=== PATIENT | male | born 1960 | race African-American/Black ===

== ENCOUNTER 2016-07-18 19:56 | Emergency (ER) | payer MEDICARE, MEDICAID ==
[2016-02-10 18:07] VITALS: BP 163/98
[~2016-07-18] VITALS: Ht 190.5 cm; Wt 122.5 kg
[~2016-07-18 19:56] MED LIST: AMIT25TA; AMLO5TAB4 PO; AMOX1TAB61 PO; CIPR500T94 PO; CLON0.3T PO; DOXA2TAB2 PO; HYDR-963 PO; INDO50CA PO; LISI40TA PO; OMEP20TA PO; TADA10TA PO; TIZA4CAP PO; TRAZ150T55 PO
[2016-07-18] MEDS ORDERED: HYDR-971 PO (21:10)
--- NOTE | 2016-07-18 21:10 | PHYS DOC ---
Past Medical History Past Medical History: GERD, Hypertension Past Surgical History: Other Additional Past Surgical Histo: back fusion and abdominal surgery Alcohol Use: None Drug Use: None Adult General Chief Complaint Chief Complaint: SHOULDER INJURY [facility] HPI Patient is a 55 year old female with complaint of atraumatic left shoulder pain for approximately one month. Patient states that he had rotator cuff surgery done greater than 20 years ago while in [place]. Patient states he saw his primary care doctor, Dr. Echeverria this past week and received a cortisone shot within the joint itself. Patient has not received any instructions on follow-up with an orthopedic doctor. He denies any additional concerns at this time. Review of Systems Review of Systems Constitutional: Denies fever or chills [] Eyes: Denies change in visual acuity, redness, or eye pain [] HENT: Denies nasal congestion or sore throat [] Respiratory: Denies cough or shortness of breath [] Cardiovascular: No additional information not addressed in HPI [] GI: Denies abdominal pain, nausea, vomiting, bloody stools or diarrhea [] : Denies dysuria or hematuria [] Musculoskeletal: Denies back pain or joint pain [] Integument: Denies rash or skin lesions [] Neurologic: Denies headache, focal weakness or sensory changes [] Endocrine: Denies polyuria or polydipsia [] Allergies Allergies Allergies Coded Allergies Type Severity Reaction Last Updated Verified Iodinated Contrast Media - Oral and Allergy Intermediate vomiting 02/10/16 Yes Physical Exam Physical Exam Constitutional: Well developed, well nourished, no acute distress, non-toxic appearance. [] HENT: Normocephalic, atraumatic, bilateral external ears normal, oropharynx moist, no oral exudates, nose normal. [] Eyes: PERRLA, EOMI, conjunctiva normal, no discharge. [] Neck: Normal range of motion, no tenderness, supple, no stridor. [] Cardiovascular:Heart rate regular rhythm, no murmur [] Lungs & Thorax: Bilateral breath sounds clear to auscultation [] Abdomen: Bowel sounds normal, soft, no tenderness, no masses, no pulsatile masses. [] Skin: Warm, dry, no erythema, no rash. [] Back: No tenderness, no CVA tenderness. [] Extremities: Left shoulder is normal in appearance. There is a surgical scar to the anterior lateral aspect of patient's shoulder. Patient complains of pain and tenderness to his left shoulder without any palpable defect or deformity. Patient demonstrates limited range of motion with raising and abduction. Left arm is normal in appearance and nontender palpation. There is no palpable defect or deformity. Neurovascularly intact with capillary refill less than 2 seconds. Neurologic: Alert and oriented X 3, normal motor function, normal sensory function, no focal deficits noted. [] Psychologic: Affect normal, judgement normal, mood normal. [] Current Patient Data Vital Signs Vital Signs Date Time Temp Pulse Resp B/P Pulse Ox O2 Delivery O2 Flow Rate FiO2 07/18/16 20:31 97.6 66 20 98 Room Air 97.6 EKG EKG [] Radiology/Procedures Radiology/Procedures [] Course & Med Decision Making Course & Med Decision Making Pertinent Labs and Imaging studies reviewed. (See chart for details) [] Dragon Disclaimer Dragon Disclaimer This electronic medical record was generated, in whole or in part, using a voice recognition dictation system. Departure Departure Impression: Primary Impression: Left shoulder pain Disposition: HOME, SELF-CARE Condition: GOOD Referrals: JAMEL WALLACE (PCP) CINTHIA DIAS MD Patient Instructions: Shoulder Pain, [id number] Additional Instructions: 1. Take the medication as prescribed. 2. Review the discharge instructions provided for self-care and reasons to return to the emergency department. 3. Perform the rowing motions and shoulder rotations as demonstrated. Be sure to do this 3 times a day. 4. Follow-up with an orthopedic doctor by: The numbers provided. Be sure to call tomorrow to schedule an appointment. Scripts Hydrocodone/Apap 5-325 (Christoval 5-325 Tablet)1 Each Tablet1 Tab PO PRN Q6HRS PRN PAIN #10 TAB Prov:DENA BOWERS 07/18/16 DENA BOWERS Jul 18, 2016 21:10
== END 2016-07-18 21:22 | disposition home or self-care (01) ==
LOC: ER 19:56
DX: M25.512 Pain in left shoulder (principal); K21.9 Gastro-esophageal reflux disease without esophagitis; I10 Essential (primary) hypertension; Z98.1 Arthrodesis status; Z98.890 Other specified postprocedural states; Z91.041 Radiographic dye allergy status
CPT/HCPCS: 99283

== ENCOUNTER 2016-08-23 06:27 | Emergency (ER) | payer MEDICARE, MEDICAID ==
[~2016-08-23] VITALS: Ht 160 cm; Wt 122.5 kg
[~2016-08-23 06:27] MED LIST changes: +HYDR-971 PO
[2016-08-23] MEDS ORDERED: IV NORMAL SALINE 1000ML BAG 1,000 ML IV ONE (06:45)
[2016-08-23 06:58] LABS: BASO % 0 % (0-3); EOS % 3 % (0-3); HEMATOCRIT 46.1 % (39.0-53.0); HEMOGLOBIN 15.5 g/dL (13.0-17.5); LYMPH % 13 % (24-48); MEAN CORPUSCULAR HEMOGLOBIN 32 pg (25-35); MEAN CORPUSCULAR HGB CONC 34 g/dL (31-37); MEAN CORPUSCULAR VOLUME 95 fL (79-100); MONO % 8 % (0-9); NEUT % 76 % (31-73); PLATELET COUNT 192 x10^3/uL (140-400); RED BLOOD COUNT 4.83 x10^6/uL (4.30-5.70); RED CELL DISTRIBUTION WIDTH 15.1 % (11.5-14.5); WHITE BLOOD COUNT 7.6 x10^3/uL (4.0-11.0)
[2016-08-23 07:07] LABS: CALCIUM 9.1 mg/dL (8.5-10.1); CREATININE 1.4 mg/dL (0.7-1.3); GFR 63.2; POTASSIUM 3.9 mmol/L (3.5-5.1)
[2016-08-23 07:14] LABS: ALBUMIN 3.5 g/dL (3.4-5.0); ALBUMIN/GLOBULIN RATIO 0.8 (1.0-1.7); TOTAL BILIRUBIN 0.4 mg/dL (0.2-1.0); TOTAL PROTEIN 7.9 g/dL (6.4-8.2)
--- NOTE | 2016-08-23 07:27 | PHYS DOC ---
Past Medical History Past Medical History: GERD, Hypertension Past Surgical History: Other Additional Past Surgical Histo: back fusion and abdominal surgery, left rotator cuff Alcohol Use: None Drug Use: None Adult General Chief Complaint Chief Complaint: diarrhea, cough HPI HPI Patient is a 55 year old L who presents with diarrhea that started today. Patient states he's had multiple loose stools. He's also had a cough for the last 3 days and now has pain in his upper abdomen whenever he coughs. 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 He denied any chest pain or shortness of breath. He does report some generalized weakness. He denies any history of PE or DVT, no history of ACS. No fevers, nausea or vomiting. Primary Care physician is Dr. Robinson Echeverria Review of Systems Review of Systems Constitutional: Denies fever or chills [] Eyes: Denies change in visual acuity, redness, or eye pain [] HENT: Denies nasal congestion or sore throat [] Respiratory: Per history of present illness Cardiovascular: Per history of present illness GI: Denies nausea, vomiting, reports diarrhea [] : Denies dysuria or hematuria [] Musculoskeletal: Denies back pain or joint pain [] Integument: Denies rash or skin lesions [] Neurologic: Denies headache, focal weakness or sensory changes [] Current Medications Current Medications Current Medications Medications (Trade) Dose Ordered Sig/Wilmer Start Time Stop Time Status Last Admin Dose Admin Ondansetron HCl (Zofran) 4 mg 1X ONCE 08/23/16 07:45 08/23/16 07:46 DC 08/23/16 07:36 4 MG Sodium Chloride (Iv Sodium Chloride 0.9% 1000ml Bag) 1,000 ml @ 1,000 mls/hr 1X ONCE 08/23/16 06:45 08/23/16 07:44 DC 08/23/16 07:13 1,000 MLS/HR Allergies Allergies Allergies Coded Allergies Type Severity Reaction Last Updated Verified Iodinated Contrast Media - Oral and Allergy Intermediate vomiting 02/10/16 Yes Physical Exam Physical Exam Constitutional: Well developed, well nourished, no acute distress, non-toxic appearance. [] HENT: Normocephalic, atraumatic, bilateral external ears normal, oropharynx moist, no oral exudates, nose normal. [] Eyes: PERRLA, EOMI, conjunctiva normal, no discharge. [] Neck: Normal range of motion, no tenderness, supple, no stridor. [] Cardiovascular:Heart rate regular with regular rhythm, no murmur [] Lungs & Thorax: Bilateral breath sounds clear to auscultation, no wheeze or crackles appreciated Abdomen: Bowel sounds normal, soft, tender to palpation diffusely in the lower chest wall/upper abdomen, no masses, no pulsatile masses. [] Skin: Warm, dry, no erythema, no rash. [] Back: No tenderness, no CVA tenderness. [] Extremities: No tenderness, no cyanosis, no clubbing, ROM intact, no edema. neg homen's bilaterally Neurologic: Alert and oriented X 3, normal motor function, normal sensory function, no focal deficits noted. [] Current Patient Data Vital Signs Vital Signs Date Time Temp Pulse Resp B/P Pulse Ox O2 Delivery O2 Flow Rate FiO2 08/23/16 08:00 86 31 134/75 96 Room Air 08/23/16 06:54 97.8 97.8 Lab Values Laboratory Tests Test 08/23/16 06:49 08/23/16 07:28 White Blood Count 7.6x10^3/uL (4.0-11.0) Red Blood Count 4.83x10^6/uL (4.30-5.70) Hemoglobin 15.5g/dL (13.0-17.5) Hematocrit 46.1% (39.0-53.0) Mean Corpuscular Volume 95fL (79-100) Mean Corpuscular Hemoglobin 32pg (25-35) Mean Corpuscular Hemoglobin Concent 34g/dL (31-37) Red Cell Distribution Width 15.1% (11.5-14.5) H Platelet Count 192x10^3/uL (140-400) Neutrophils (%) (Auto) 76% (31-73) H Lymphocytes (%) (Auto) 13% (24-48) L Monocytes (%) (Auto) 8% (0-9) Eosinophils (%) (Auto) 3% (0-3) Basophils (%) (Auto) 0% (0-3) Neutrophils # (Auto) 5.8x10^3uL (1.8-7.7) Lymphocytes # (Auto) 1.0x10^3/uL (1.0-4.8) Monocytes # (Auto) 0.6x10^3/uL (0.0-1.1) Eosinophils # (Auto) 0.2x10^3/uL (0.0-0.7) Basophils # (Auto) 0.0x10^3/uL (0.0-0.2) Sodium Level 140mmol/L (136-145) Potassium Level 3.9mmol/L (3.5-5.1) Chloride Level 106mmol/L (98-107) Carbon Dioxide Level 25mmol/L (21-32) Anion Gap 9 (6-14) Blood Urea Nitrogen 19mg/dL (8-26) Creatinine 1.4mg/dL (0.7-1.3) H Estimated GFR (Cockcroft-Gault) 63.2 BUN/Creatinine Ratio 14 (6-20) Glucose Level 110mg/dL (70-99) H Calcium Level 9.1mg/dL (8.5-10.1) Total Bilirubin 0.4mg/dL (0.2-1.0) Aspartate Amino Transferase (AST) 28U/L (15-37) Alanine Aminotransferase (ALT) 41U/L (16-63) Alkaline Phosphatase 58U/L (46-116) Total Protein 7.9g/dL (6.4-8.2) Albumin 3.5g/dL (3.4-5.0) Albumin/Globulin Ratio 0.8 (1.0-1.7) L Urine Collection Type Void Urine Color Yellow Urine Clarity Clear Urine pH 5.0 Urine Specific [place] 1.025 Urine Protein Negativemg/dL (NEG-TRACE) Urine Glucose (UA) Negativemg/dL (NEG) Urine Ketones (Stick) Negativemg/dL (NEG) Urine Blood Negative (NEG) Urine Nitrite Negative (NEG) Urine Bilirubin Negative (NEG) Urine Urobilinogen Dipstick 0.2mg/dL (0.2 mg/dL) Urine Leukocyte Esterase Negative (NEG) Urine RBC 0/HPF (0-2) Urine WBC 1-4/HPF (0-4) Urine Squamous Epithelial Cells Mod/LPF Urine Bacteria 0/HPF (0-FEW) Urine Mucus Marked/LPF Laboratory Tests 08/23/16 06:49 Laboratory Tests 08/23/16 06:49 EKG EKG 88 bpm, sinus, normal axis, normal intervals, no ST elevation or depression, nonischemic T waves [] Radiology/Procedures Radiology/Procedures CXR: Read by radiology as a normal study [] Course & Med Decision Making Course & Med Decision Making Pertinent Labs and Imaging studies reviewed. (See chart for details) Patient was given IV fluids, Zofran, IV Toradol. Lab work, chest x-ray, EKG performed. Acute findings on ED workup. Patient feeling much better. Discharged with Rx for Zofran and loperamide. Return precautions given. Dragon Disclaimer Dragon Disclaimer This electronic medical record was generated, in whole or in part, using a voice recognition dictation system. Departure Departure Impression: Primary Impression: Diarrhea Disposition: HOME, SELF-CARE Condition: IMPROVED Referrals: JAMEL WALLACE (PCP) Scripts Guaifenesin/Codeine Phosphate (Codeine-Guaifen 10-100 mg/5 ml)120 Ml [id number] Ml PO PRN Q4-6HRS PRN COUGH #200 LIQUID Prov:DARIAN CHAUDHARI MD 08/23/16 Loperamide Hcl (Loperamide)2 Mg Tablet2 Mg PO PRN PRN DIARRHEA #16 TAB take 2 tabs after first loose stool, then 1 tab each loose stool thereafter. Max 8 tabs per day. Prov:DARIAN CHAUDHARI MD 08/23/16 DARIAN CHAUDHARI MD August 23, 2016 07:27
--- NOTE | 2016-08-23 07:34 | RAD ---
Indication cough and chest pain for 2 days. PA and lateral views of the chest were obtained and are compared to a single view examination just over 3 years earlier. Heart size is at the upper limits of normal. There is no congestive heart failure. There is no focal infiltrate significant pleural fluid collection or pneumothorax. IMPRESSION: Stable mild cardiomegaly. No acute or focal process seen in the chest
[2016-08-23] MEDS ORDERED: ONDANSETRON PF 4 MG/2 ML VIAL. IV ONE (07:45)
[2016-08-23 07:51] LABS: BILIRUBIN,URINE NEGATIVE (NEG); GLUCOSE,URINE NEGATIVE (NEG); NITRITE,URINE NEGATIVE (NEG); PROTEIN,URINE NEGATIVE (NEG-TRACE); UROBILINOGEN,URINE 0.2 mg/dL (0.2 mg/dL)
[2016-08-23 08:00] VITALS: BP 134/75
[2016-08-23 08:06] LABS: BACTERIA,URINE 0 /HPF (0-FEW); RBC,URINE 0 /HPF (0-2); SQUAMOUS EPITHELIAL CELL,UR MOD /LPF
[2016-08-23] MEDS ORDERED: LOPE2TAB27 PO (08:23)
[2016-08-23] MEDS ORDERED: GUAI120L35 PO (08:23)
--- NOTE | 2016-08-23 09:56 | EKG ---
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
== END 2016-08-23 08:30 | disposition home or self-care (01) ==
LOC: ER 06:27
DX: R19.7 Diarrhea, unspecified (principal); R05 Cough; R10.9 Unspecified abdominal pain; R42 Dizziness and giddiness; R53.1 Weakness; I10 Essential (primary) hypertension; K21.9 Gastro-esophageal reflux disease without esophagitis; Z98.1 Arthrodesis status; Z91.041 Radiographic dye allergy status
CPT/HCPCS: 36415; 71020; 80053; 81001; 85027; 93005; 96361; 96374; 99285; J2405; J7030

== ENCOUNTER 2017-02-10 19:48 | Emergency (ER) | payer OTHER, MEDICARE, MEDICAID ==
[~2017-02-10] VITALS: Ht 190.5 cm; Wt 129.3 kg
[~2017-02-10 19:48] MED LIST changes: +GUAI120L35 PO; +LOPE2TAB27 PO; -OMEP20TA PO; +OMEP20TA8 PO; +TRAZ150T49 PO; -TRAZ150T55 PO
[2017-02-10] MEDS ORDERED: HYDROcodone/APAP 5/325MG 1 TAB TABLET PO ONE (20:30)
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
[2017-02-10] MEDS ORDERED: KETOROLAC 60 MG/2 ML INJ. IM ONE (21:00)
[2017-02-10] MEDS ORDERED: CYCL5TAB PO (21:47)
[2017-02-10] MEDS ORDERED: HYDR-971 PO (21:47)
[2017-02-10 22:02] VITALS: BP 160/95
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
== END 2017-02-10 22:02 | disposition home or self-care (01) ==
LOC: ER 19:48
DX: S16.1XXA Strain of muscle, fascia and tendon at neck level, initial encounter (principal); M25.512 Pain in left shoulder; M54.5 Low back pain; K21.9 Gastro-esophageal reflux disease without esophagitis; I10 Essential (primary) hypertension; Z98.890 Other specified postprocedural states; Z91.041 Radiographic dye allergy status; V43.52XA Car driver injured in collision with other type car in traffic accident, initial encounter; Y93.I9 Activity, other involving external motion; Y92.410 Unspecified street and highway as the place of occurrence of the external cause; Y99.8 Other external cause status
CPT/HCPCS: 72040; 72100; 73030; 96372; 99284; J1885

== ENCOUNTER 2019-04-23 18:04 | Emergency (ER) | payer OTHER, MEDICAID ==
[~2019-04-23] VITALS: Ht 190.5 cm; Wt 136.1 kg
[~2019-04-23 18:04] MED LIST changes: +CYCL5TAB PO; +HYDR-3135 PO; +HYDR-3164 PO; -HYDR-963 PO; -HYDR-971 PO; -INDO50CA PO; +INDO50CA15 PO; +LISI-130 PO; -LISI40TA PO
[2019-04-23 18:22] VITALS: BP 188/100
[2019-04-23] MEDS ORDERED: NAPROXEN 500 MG TABLET PO STA (18:47)
[2019-04-23] MEDS ORDERED: diazePAM 5 MG TABLET PO ONE (19:00)
[2019-04-23] MEDS ORDERED: predniSONE 10 MG TABLET PO ONE (19:00)
[2019-04-23] MEDS ORDERED: MORPHINE SULFATE 10 MG/ML VIAL. IM ONE (19:00)
[2019-04-23] MEDS ORDERED: CYCL10TA2 PO ×2 (19:54→19:58)
[2019-04-23] MEDS ORDERED: HYDR-3164 PO ×2 (19:54→19:58)
[2019-04-23] MEDS ORDERED: METH4TAB2 PO (19:58)
--- NOTE | 2019-04-23 19:59 | PHYS DOC ---
Past Medical History Past Medical History: GERD, Hypertension (TIFF TRUJILLO APRN) Past Surgical History: Other Additional Past Surgical Histo: back fusion and abdominal surgery, left rotator cuff (TIFF TRUJILLO APRN) Alcohol Use: None Drug Use: None (TIFF TRUJILLO APRN) Adult General Chief Complaint Chief Complaint: HIP PAIN HPI HPI Patient is a 58 year old male who presents to the ED today complaining of 10 out of 10 right hip pain that has been going on for 5 days. Patient describes the pain as sharp and intermittent worse on weight bearing. He reports he radial has history of chronic back pain. Denies any known injury. Denies any pain radiating to bilateral lower extremities, denies any loss of bowel bladder function. He states he has been sleeping on a couch which could have exacerbated his pain. (TIFF TRUJILLO APRN) Review of Systems Review of Systems Constitutional: Denies fever or chills [] Musculoskeletal: Reports right hip pain Integument: Denies rash or skin lesions [] Neurologic: Denies headache, focal weakness or sensory changes [] All other systems were reviewed and found to be within normal limits, except as documented in this note. (TIFF TRUJILLO APRN) Current Medications Current Medications Current Medications Medications (Trade) Dose Ordered Sig/Wilmer Start Time Stop Time Status Last Admin Dose Admin Diazepam (Valium) 5 mg 1X ONCE 04/23/19 19:00 04/23/19 19:01 DC 04/23/19 18:58 5 MG Morphine Sulfate (Morphine Sulfate) 5 mg 1X ONCE 04/23/19 19:00 04/23/19 19:01 DC 04/23/19 18:59 5 MG Naproxen (Naprosyn) 500 mg 1X STAT 04/23/19 18:47 04/23/19 18:50 DC 04/23/19 18:58 500 MG Prednisone (Prednisone) 50 mg 1X ONCE 04/23/19 19:00 04/23/19 19:01 DC 04/23/19 18:58 50 MG (FER OSORIO MD) Allergies Allergies Allergies Coded Allergies Type Severity Reaction Last Updated Verified Iodinated Contrast Media - Oral and Allergy Intermediate vomiting 02/10/16 Yes (FER OSORIO MD) Physical Exam Physical Exam Constitutional: Well developed, well nourished, no acute distress, non-toxic appearance. [] Skin: Warm, dry, no erythema, no rash. [] Back: No tenderness, no CVA tenderness. [] Extremities: Morbidly obese patient, tenderness on palpation of the inner right thigh, slightly Limited range of motion to the right hip due to weight. +2 right pedal pulse. Cap refill less than 2 seconds the right lower extremity. Sensation intact Neurologic: Alert and oriented X 3, normal motor function, normal sensory function, no focal deficits noted. [] Psychologic: Affect normal, judgement normal, mood normal. [] (TIFF TRUJILLO APRN) Current Patient Data Vital Signs Vital Signs Date Time Temp Pulse Resp B/P (MAP) Pulse Ox O2 Delivery O2 Flow Rate FiO2 04/23/19 18:59 Room Air 04/23/19 18:22 97.8 61 14 188/100 (129) 95 97.8 (FER OSORIO MD) EKG EKG [] (TIFF TRUJILLO APRN) Radiology/Procedures Radiology/Procedures [] (TIFF TRUJILLO APRN) Course & Med Decision Making Course & Med Decision Making Pertinent Labs and Imaging studies reviewed. (See chart for details) This is a 58-year-old male patient presenting to the ED today with right hip pain for 5 days, no known injury. Right hip x-rays interpreted by Dr. Osorio and negative for any acute findings. Ice elevation encouraged. Follow-up with PCP in 1-2 weeks. (TIFF TRUJILLO APRN) Dragon Disclaimer Dragon Disclaimer This electronic medical record was generated, in whole or in part, using a voice recognition dictation system. (TIFF TRUJILLO APRN) Attending Signature I have participated in the care of this patient and I have reviewed and agree with all pertinent clinical information above including history, exam, and recommendations. (FER OSORIO MD) Departure Departure Impression: Primary Impression: Right hip pain Disposition: HOME, SELF-CARE Condition: STABLE Referrals: NO PCP (PCP) Follow-up next week Patient Instructions: Hip Pain Additional Instructions: You were evaluated in the medicine for right hip pain. Your right hip x-rays are negative for any acute findings. Try to ice and elevate the extremity. Take the prescribed pain medicine as needed for pain and follow-up with your doctor next week Scripts Methylprednisolone (MEDROL) 4 Mg Tab.ds.pk 1 PKG PO UD, #1 PKG Prov: TIFF TRUJILLO [employer] 04/23/19 Cyclobenzaprine Hcl (CYCLOBENZAPRINE HCL) 10 Mg Tablet 1 TAB PO TID, #30 TAB Prov: TIFF TRUJILLO [employer] 04/23/19 Hydrocodone/Apap 5-325 (NORCO 5-325 TABLET) 1 Each Tablet 1-2 TAB PO Q4-6HRS, #20 TAB Prov: TIFF TRUJILLO APRN 04/23/19 Cyclobenzaprine Hcl (CYCLOBENZAPRINE HCL) 10 Mg Tablet 1 TAB PO TID, #30 TAB Prov: DEISYTIFF Evans [employer] 04/23/19 TIFF TRUJILLO YOSEF Apr 23, 2019 19:59 FER OSORIO MD Apr 24, 2019 19:19
--- NOTE | 2019-04-23 23:59 | RAD ---
Study: HIP RIGHT 2V WITH PELVIS Indication: Pain. Comparison: Correlation is made to the CT abdomen/pelvis from 11/25/2013 Findings: Surgical changes at L4-L5. Degraded evaluation of the right hip due to overlying soft tissues. Alignment is maintained at both hips. No acute fracture is identified however there are radiographic findings suggestive of a hip joint effusion on the right. Relatively mild arthrosis at the right more so than left hips. Chronic osseous proliferation at the left more so than right iliac wings. Redemonstrated lateral enthesophytes at the lower lumbar spine as well as discogenic arthrosis above and below the operative level. Impression: No acute fracture is identified or malalignment at the hips. Note is made that there are radiographic findings suggestive of a right hip joint effusion of uncertain etiology however there is relatively mild right more so than left hip arthrosis and a degenerative etiology is possible. Electronically signed by: EMORY ARAUJO MD (04/23/2019 11:55 PM) [id number]
== END 2019-04-23 20:00 | disposition home or self-care (01) ==
LOC: ER 18:04
DX: M25.551 Pain in right hip (principal); K21.9 Gastro-esophageal reflux disease without esophagitis; G89.29 Other chronic pain; E66.01 Morbid (severe) obesity due to excess calories; Z68.37 Body mass index [BMI] 37.0-37.9, adult; I10 Essential (primary) hypertension; Z98.890 Other specified postprocedural states; Z91.041 Radiographic dye allergy status; Z79.899 Other long term (current) drug therapy
CPT/HCPCS: 73502; 96372; 99284; J2270; J7512